=== PATIENT | male | born 1980 | race Caucasian/White ===

== ENCOUNTER 2017-02-01 04:07 | Emergency (ER) | payer SELFPAY ==
[~2017-02-01] VITALS: Ht 177.8 cm; Wt 72.6 kg
--- NOTE | 2017-02-01 04:10 | NUR ---
36 YO MALE BB RA. PT IS ALERT X 3, C/O RIGHT SHOULDER PAIN, STATES HE HAS HAD IT DISLOCATED BEFORE, THINKS IT IS DISLOCATED. PT PMS DISTAL FROM PAIN SITE WNL. SKIN WARM AND DRY, RR EVEN AND UNLABORED. PT GOWNED, PLACED ON BUSGIRL. AWAITING ORDERS FROM PROVIDER.
--- NOTE | 2017-02-01 04:30 | NUR ---
20G FOREHEAD IV STARTED
--- NOTE | 2017-02-01 04:35 | NUR ---
INFORMED CONSENT SIGNED BY MD AND PATIENT
--- NOTE | 2017-02-01 04:40 | NUR ---
RT CALLED FOR SEDATION
[2017-02-01] MEDS ORDERED: ETOMIDATE 2 MG/ML VIAL ONE (04:56)
[2017-02-01] MEDS ORDERED: ETOMIDATE 2 MG/ML VIAL IV ONE (05:00)
--- NOTE | 2017-02-01 05:00 | NUR ---
EMT TENNILLE, PHILIP COLVIN, PHILIP TAYLOR, STEFANI WARD MD, RT AT BED SIDE FOR MODERATE SEDATION FOR RIGHT SHOULDER CLOSED REDUCTION STARTED. 10 MG ETOMIDATE ADMIN IVP ORDERED. PT DID NOT FALL ASLEEP WITH MEDICATION. ADMIN DIPRIVAN 100 MG PER VERBAL ORDER STEFANI WARD MD, PT IS NOT UNCONSCIOUS FOR PROCEDURE. STEFANI WARD MD REDUCED RIGHT SHOULDER. WILL CONTINUE TO MONITOR
[2017-02-01] MEDS ORDERED: PROPOFOL 20 ML IV ONE (05:12)
--- NOTE | 2017-02-01 05:24 | NUR ---
RADIOLOGY AT BED SIDE FOR X RAY
--- NOTE | 2017-02-01 05:28 | NUR ---
PT RESTING IN ER BED, NAD NOTED, SKIN WARM AND DRY. WILL CONTINUE TO MONITOR
[2017-02-01] MEDS ORDERED: PROPOFOL 200 MG/20 ML VIAL IV ONE (06:30)
[2017-02-01 07:02] VITALS: BP 120/72
--- NOTE | 2017-02-01 07:04 | NUR ---
Patient discharged to home in stable condition. Written and verbal after care instructions given. Patient verbalizes understanding of instruction.IV removed. Catheter intact and site benign. Pressure and 4x4 applied to site. No bleeding noted. PT ambulatory with a steady gait
== END 2017-02-01 07:04 | disposition home or self-care (01) ==
LOC: ER 04:08
DX: M24.411 Recurrent dislocation, right shoulder (principal); W18.39XA Other fall on same level, initial encounter; Y93.89 Activity, other specified; Y92.89 Other specified places as the place of occurrence of the external cause; Y99.9 Unspecified external cause status
CPT/HCPCS: 23650; 73030; 99152; 99285; A4606; J2704; J3490; J7030; Z7610

== ENCOUNTER 2017-02-02 08:10 | Emergency (ER) | payer SELFPAY ==
[~2017-02-02] VITALS: Ht 175.3 cm; Wt 72.6 kg
--- NOTE | 2017-02-02 08:20 | NUR ---
xray at bedside.
--- NOTE | 2017-02-02 08:25 | NUR ---
Patient bib RA c/o right shoulder dislocations s/p fall. Patient is a/ox 4. Breathing even and unlabored. No sob. Right arm in a sling. Patient's vitals stable. Safety and comfort measures in place. Awaiting MD orders.
--- NOTE | 2017-02-02 08:55 | NUR ---
PATIENT CLEARED FOR DISCHARGE PER DR. BALDWIN. NO FRACUTRE/DISLOCATION ON RIGHT SHOULDER. Patient discharged to home in stable condition. Written and verbal after care instructions given. However, patient is refusing to sign discharge paperwork or leave. Patient stating he does meth and needs more help. Patient given referral paperwork for rehab and psychiatric help. Patient escorted out of hospital with security.
[2017-02-02 09:10] VITALS: BP 123/62
== END 2017-02-02 08:55 | disposition home or self-care (01) ==
LOC: ER 08:17
DX: M25.511 Pain in right shoulder (principal); F19.10 Other psychoactive substance abuse, uncomplicated; F11.10 Opioid abuse, uncomplicated; F15.10 Other stimulant abuse, uncomplicated; F17.200 Nicotine dependence, unspecified, uncomplicated
CPT/HCPCS: 73030; 99284; A4606; Z7610

== ENCOUNTER 2017-02-02 09:54 | Emergency (ER) | payer SELFPAY ==
[~2017-02-02] VITALS: Ht 162.6 cm; Wt 77.1 kg
--- NOTE | 2017-02-02 09:55 | NUR ---
BBRA FROM STREETS FOR SUICIDAL IDEATION PLANS TO RUN INTO A STREET. GOWNED PT AWAITING MD ORDER
[2017-02-02 10:19] LABS: APPEARANCE,URINE Hazy (CLEAR); BILIRUBIN,URINE Negative (NEGATIVE); BLOOD, URINE Small Ery/uL (NEGATIVE); COLOR,URINE Yellow (YELLOW); KETONES,URINE Negative (NEGATIVE); LEUKOCYTE ESTERASE ,URINE Negative (NEGATIVE); NITRITE, URINE Negative (NEGATIVE); PH,URINE 8.5 (5.0-8.0); PROTEIN,URINE Negative (NEGATIVE); UGLUCOSE 250 MG/DL mg/dL (NEGATIVE); UROBILINOGEN,URINE 0.2 EU/dL (0.2)
[2017-02-02 10:26] LABS: EOSINOPHILS # (AUTO) 0.1 /CMM (0.0-0.7); HEMATOCRIT 45 % (39-51); MEAN CORPUSCULAR VOLUME 82 fL (80-96); MONOCYTES # (AUTO) 0.9 /CMM (0.1-1.30); RED BLOOD CELL COUNT(AUTO) 5.49 MIL/uL (4.5-6.0)
[2017-02-02 10:26] LABS: BACTERIA,URINE Rare /HPF (None Seen); RBC,URINE 0-3 /HPF (0-2); SQUAMOUS EPITHELIAL CELL,UR Few /HPF (None Seen)
[2017-02-02] MEDS ORDERED: LORAZEPAM INJ 2 MG/ML VIAL ONE (10:27)
--- NOTE | 2017-02-02 10:28 | NUR ---
THE PATIENT STATES " GET ME OUT OF HERE, I WAS JUST FUCKING AROUND, PLEASE GET ME OUT"
[2017-02-02 10:29] LABS: BASOPHILS # (AUTO) 0.4 /CMM (0.0-0.2); BASOPHILS % (AUTO) 4.4 % (0.0-2.0); EOSINOPHILS % (AUTO) 1.1 % (0.0-6.0); HEMOGLOBIN 14.9 g/dL (13.5-17.5); LYMPHOCYTES % (AUTO) 20.7 % (20.0-44.0); MEAN CORPUSCULAR HEMOGLOBIN 27 PG (26.0-33.0); MEAN CORPUSCULAR HGB CONC 33 g/dl (31.0-36.0); MONOCYTES % (AUTO) 9.4 % (2.0-12.0); NEUTROPHILS # (AUTO) 6.3 /CMM (1.8-8.9); NEUTROPHILS % (AUTO) 64.4 % (43.0-81.0); PLATELET COUNT (AUTO) 246 /CMM (150-450); RDW COEFFICIENT OF VARIATION 13.9 (11.5-15.0); WHITE BLOOD COUNT (AUTO) 9.7 K/uL (4.3-11.0)
[2017-02-02] MEDS ORDERED: LORAZEPAM INJ 2 MG/ML VIAL IM ONE (10:30)
[2017-02-02] MEDS ORDERED: ZIPRASIDONE MESYLATE 20 MG/VIAL VIAL IM ONE ×3 (10:30→11:30)
[2017-02-02 10:33] LABS: CALCIUM, SERUM 9.7 mg/dL (8.5-10.1); CARBON DIOXIDE 29 mmol/L (21-32); CHLORIDE 105 mmol/L (98-107); CREATININE 0.8 mg/dL (0.6-1.3); GLUCOSE 113 mg/dL (74-106); POTASSIUM 4.3 mmol/L (3.5-5.1); SODIUM SERUM 142 mmol/L (136-145); UREA NITROGEN, BLOOD 6 mg/dL (7-18)
[2017-02-02 10:40] LABS: ALANINE AMINOTRANSFERASE 35 U/L (12-78); ALBUMIN 4.1 g/dL (3.4-5.0); ALCOHOL, BLOOD < 3 mg/dL (0-0); ALKALINE PHOSPHATASE 160 U/L (46-116); ASPARTATE AMINOTRANSFERASE 28 U/L (15-37); BILIRUBIN,DIRECT 0.1 mg/dL (0.0-0.2); BILIRUBIN,TOTAL 0.5 mg/dL (0.2-1.0); SALICYLATE 2.9 mg/dL (2.8-20.0); TOTAL PROTEIN, SERUM 8.5 g/dL (6.4-8.2)
[2017-02-02 10:41] LABS: ACETAMINOPHEN 0 ug/ml (10-30)
[2017-02-02] MEDS ORDERED: WATER FOR INJECTION,STERILE 10 ML ONE (11:23)
--- NOTE | 2017-02-02 15:17 | NUR ---
PT ASLEEP BUT [place] TO CALL OF NAME GOES BACK TO SLEEP
--- NOTE | 2017-02-02 16:00 | NUR ---
PT SEEN BY PSYCH MAAME HAMM OK TO [place] [facility]
[2017-02-02] MEDS ORDERED: OLANZAPINE 10 MG VIAL IM ONE ×2 (16:34→17:00)
--- NOTE | 2017-02-02 16:50 | NUR ---
Patient discharged to home in stable condition. Written and verbal after care instructions given. Patient verbalizes understanding of instruction.
[2017-02-02 17:11] VITALS: BP 140/86
--- NOTE | 2017-02-02 17:13 | NUR ---
PT CLEARED BY
== END 2017-02-02 17:12 | disposition home or self-care (01) ==
LOC: ER 09:56
DX: F19.10 Other psychoactive substance abuse, uncomplicated (principal); F17.200 Nicotine dependence, unspecified, uncomplicated; F15.10 Other stimulant abuse, uncomplicated; F11.10 Opioid abuse, uncomplicated
CPT/HCPCS: 36415; 80048; 80076; 80305; 80329; 81001; 85025; 96372 ×4; 99284; A4606; G0480 ×2; J2060; J3486 ×2; J3490 ×2; Z7610; 81000-TC